=== PATIENT | male | born 1955 | race Hispanic/Latino ===

== ENCOUNTER 2017-07-24 09:55 | Outpatient (CLI) | payer OTHER ==
--- NOTE | 2017-07-24 11:09 | XRay Report ---
LEFT KNEE, 2 VIEWS History: Left knee pain. Findings: Moderate joint space narrowing is identified in the medial compartment. Mild retropatellar spurring is identified. There is no evidence for fracture, osteochondral defect or joint effusion. Bone mineralization is normal. Impression: Osteoarthritis.
== END 2017-07-24 09:56 | disposition home or self-care (01) ==
LOC: XRAY 09:55
PROVIDERS: ATTEND Internal Medicine
DX: M17.12 Unilateral primary osteoarthritis, left knee (principal)